=== PATIENT | male | born 1995 | race Caucasian/White ===

== ENCOUNTER 2019-11-21 14:45 | Emergency (ER) | payer MEDICAID ==
[~2019-11-21] VITALS: Ht 167.6 cm; Wt 90.3 kg
[2019-11-21 14:59] VITALS: Ht 167.6 cm; Wt 90.3 kg
[2019-11-21 17:06] VITALS: BP 141/54
== END 2019-11-21 17:06 | disposition home or self-care (01) ==
LOC: ED 14:45
DX: S92.351A Displaced fracture of fifth metatarsal bone, right foot, initial encounter for closed fracture (principal); W18.30XA Fall on same level, unspecified, initial encounter; Y93.89 Activity, other specified; Y92.89 Other specified places as the place of occurrence of the external cause; Y99.8 Other external cause status

== ENCOUNTER 2020-02-19 09:58 | Emergency (ER) | payer MEDICAID ==
[~2020-02-19] VITALS: Ht 167.6 cm; Wt 90.7 kg
[2020-02-19 10:11] VITALS: Ht 167.6 cm; Wt 90.7 kg
[2020-02-19 13:00] VITALS: BP 129/79
== END 2020-02-19 13:00 | disposition home or self-care (01) ==
LOC: ED 09:58
DX: S92.351A Displaced fracture of fifth metatarsal bone, right foot, initial encounter for closed fracture (principal); S80.212A Abrasion, left knee, initial encounter; W01.0XXA Fall on same level from slipping, tripping and stumbling without subsequent striking against object, initial encounter; Y93.89 Activity, other specified; Y92.89 Other specified places as the place of occurrence of the external cause; Y99.8 Other external cause status
CPT/HCPCS: 90715; Q0092